=== PATIENT | female | born 1990 | race Caucasian/White ===

== ENCOUNTER 2022-07-13 18:26 | Emergency (ER) | payer MEDICAID, OTHER ==
[~2022-07-13] VITALS: Ht 175.3 cm; Wt 100.0 kg
[2022-07-13 18:59] VITALS: BP 117/73
[2022-07-13] MEDS ORDERED: ACETAMINOPHEN 500 MG TAB PO ONE (19:15)
[2022-07-13] MEDS ORDERED: IBUP800T26 PO (20:21)
[2022-07-13] MEDS ORDERED: PENI500T2 PO (20:21)
== END 2022-07-13 20:27 | disposition home or self-care (01) ==
LOC: ER 18:26
DX: J02.9 Acute pharyngitis, unspecified (principal)